=== PATIENT | female | born 1990 | race Native Hawaiian/Other Pacific Islander ===

== ENCOUNTER 2020-02-07 08:27 | Outpatient (CLI) | payer OTHER | END 2020-02-07 21:03 | disposition home or self-care (01) | LOC: RAD 08:27 | DX: M54.2 Cervicalgia (principal); M54.5 Low back pain; Z86.2 Personal history of diseases of the blood and blood-forming organs and certain disorders involving the immune mechanism ==

== ENCOUNTER 2020-02-14 08:30 | Outpatient (CLI) | payer OTHER | END 2020-02-14 20:41 | disposition home or self-care (01) | LOC: LAB 08:30 | DX: Z20.828 Contact with and (suspected) exposure to other viral communicable diseases (principal) | CPT/HCPCS: 87635; G2023; U0003 ==

== ENCOUNTER 2020-04-02 08:26 | Outpatient (CLI) | payer OTHER | END 2020-04-02 22:20 | disposition home or self-care (01) | LOC: US 08:26 | DX: R11.0 Nausea (principal); R94.5 Abnormal results of liver function studies ==